=== PATIENT | female | born 1950 | race Caucasian/White ===

== ENCOUNTER 2020-10-11 09:16 | Inpatient (IN) | payer MEDICARE, OTHER ==
[~2020-10-11] VITALS: Ht 167.6 cm; Wt 92.5 kg
[~2020-10-11 09:16] MED LIST: ARAVA20 MG PO; BUSPAR 5MG TABLE5 MG PO; CALCIUM + VITA1 EACH PO; CELLCEPT500 MG PO; COUMADIN1 MG PO; COUMADIN3 MG PO; COUMADIN4 MG PO; DULCOLAX5 MG PO; ELIQUIS 5 MG TAB5 MG PO; LASIX20 MG PO; LEVAQUIN250 MG PO; LEVAQUIN750 MG PO; LIDEX TOP; LISINOPRIL40 MG PO; LOPID TAB 600600 MG PO; LOPRESSOR50 MG PO; MIRALAX17 GM PO; OXYCONTIN20 MG PO; OXYCONTIN30 MG PO; PERCOCET 10-321 EACH PO; PROVENTIL HFA 61 INH INH; TRELEGY ELLIPTA; TYLENOL 325MG325 MG PO; VENTOLIN/PROVE0.5 ML INH; VITAMIN D33000 UNIT PO; XYLOCAINE 5% OI35 GM TOP; ZANAFLEX 4 MG TA4 MG PO; ZESTRIL40 MG PO; ZOLPIDEM TARTRA10 MG PO
[2020-10-11 10:11] LABS: HEMOGLOBIN 11.7 gm/dl (12.3-15.3); RED BLOOD COUNT 4.68 M/UL (4.00-5.10); WHITE BLOOD COUNT 13.1 K/UL (4.5-11.0)
[2020-10-11 11:10] LABS: BUN/CREATININE RATIO 14 (0-10)
[2020-10-11] MEDS ORDERED: OXYCODONE HCL15 MG PO (16:19)
[2020-10-11] MEDS ORDERED: MIRALAX17 GM PO (16:24)
[2020-10-11] MEDS ORDERED: LASIX20 MG PO (18:23)
[2020-10-11] MEDS ORDERED: AMITRIPTYLINE100 MG PO (22:52)
[2020-10-11] MEDS ORDERED: AMLODIPINE BESY10 MG PO (22:53)
[2020-10-11] MEDS ORDERED: LIPITOR TAB 1010 MG PO (22:53)
[2020-10-11] MEDS ORDERED: SYNTHROID25 MCG PO (23:00)
[2020-10-11] MEDS ORDERED: OMEPRAZOLE40 MG PO (23:03)
[2020-10-11] MEDS ORDERED: LYRICA100 MG PO (23:04)
[2020-10-12 05:39] LABS: HEMOGLOBIN 10.9 gm/dl (12.3-15.3); RED BLOOD COUNT 4.44 M/UL (4.00-5.10); WHITE BLOOD COUNT 12.5 K/UL (4.5-11.0)
[2020-10-13 02:57] LABS: HEMOGLOBIN 10.6 gm/dl (12.3-15.3); RED BLOOD COUNT 4.31 M/UL (4.00-5.10)
[2020-10-13 03:22] LABS: WHITE BLOOD COUNT 8.5 K/UL (4.5-11.0)
[2020-10-15 03:10] LABS: HEMOGLOBIN 11.1 gm/dl (12.3-15.3); RED BLOOD COUNT 4.47 M/UL (4.00-5.10)
[2020-10-15 03:35] LABS: WHITE BLOOD COUNT 5.1 K/UL (4.5-11.0)
--- NOTE | 2020-10-15 10:17 | NUR ---
MD ONEAL ON FLOOR, ASK IF SHE WOULD LIKE PATIENT TO HAVE STRESS TEST TODAY, SHE ANSWERED YES, IF SHE WANTED PATIENT TO HAVE HER MEDICATION AND SHE STATED YES, INCLUDING THE BETABLOCKERS, PASSED THIS INFORMATION ON TO NUCLEAR MEDICATION STAFF.
--- NOTE | 2020-10-15 16:25 | NUR ---
CARDIOLOGY TO SEE PATIENT. SHE HAS HAD PAIN MEDICATION AND APPEARS DROWSY. MD SANTOSH PICKENS
[2020-10-16 03:21] LABS: HEMOGLOBIN 11.9 gm/dl (12.3-15.3); RED BLOOD COUNT 4.8 M/UL (4.00-5.10)
[2020-10-16 03:23] LABS: WHITE BLOOD COUNT 7.7 K/UL (4.5-11.0)
[2020-10-16] MEDS ORDERED: SYNTHROID50 MCG PO (11:59)
[2020-10-16] MEDS ORDERED: DIGOX125 MCG PO (11:59)
[2020-10-16] MEDS ORDERED: LOPRESSOR100 MG PO (11:59)
[2020-10-16] MEDS ORDERED: LISINOPRIL20 MG PO (11:59)
[2020-10-16] MEDS ORDERED: LASIX40 MG PO (11:59)
[2020-10-16] MEDS ORDERED: LEVOFLOXACIN500 MG PO (12:03)
== END 2020-10-16 18:40 | disposition home health service (06) | DRG 291 ==
LOC: ER1 09:16 → CDU 13:06 → PROG CARE 14:47
PROVIDERS: Emergency Medicine; Internal Medicine Cardiovascular Disease; Internal Medicine Infectious Disease; Physician Assistant Medical; ADMIT Internal Medicine
PROC: B24BZZ4 Ultrasonography of Heart with Aorta, Transesophageal (ICD-10-PCS; principal; 2020-10-12)
DX: I13.0 Hypertensive heart and chronic kidney disease with heart failure and stage 1 through stage 4 chronic kidney disease, or unspecified chronic kidney disease (principal); I50.33 Acute on chronic diastolic (congestive) heart failure; G92 Toxic encephalopathy; D68.51 Activated protein C resistance; J96.11 Chronic respiratory failure with hypoxia; Z20.822 Contact with and (suspected) exposure to COVID-19; N18.30 Chronic kidney disease, stage 3 unspecified; R53.81 Other malaise; I25.10 Atherosclerotic heart disease of native coronary artery without angina pectoris; K21.9 Gastro-esophageal reflux disease without esophagitis; M32.9 Systemic lupus erythematosus, unspecified; E03.9 Hypothyroidism, unspecified; G89.29 Other chronic pain; M06.9 Rheumatoid arthritis, unspecified; J30.2 Other seasonal allergic rhinitis; I08.2 Rheumatic disorders of both aortic and tricuspid valves; J44.9 Chronic obstructive pulmonary disease, unspecified; I27.20 Pulmonary hypertension, unspecified; N30.90 Cystitis, unspecified without hematuria; I48.0 Paroxysmal atrial fibrillation; Z79.01 Long term (current) use of anticoagulants; Z86.711 Personal history of pulmonary embolism; Z86.718 Personal history of other venous thrombosis and embolism; Z95.5 Presence of coronary angioplasty implant and graft; Z98.42 Cataract extraction status, left eye; Z98.41 Cataract extraction status, right eye; Z90.49 Acquired absence of other specified parts of digestive tract; Z98.1 Arthrodesis status; Z88.0 Allergy status to penicillin; Z91.040 Latex allergy status; Z87.891 Personal history of nicotine dependence; Z82.49 Family history of ischemic heart disease and other diseases of the circulatory system; Z83.3 Family history of diabetes mellitus; Z80.3 Family history of malignant neoplasm of breast
CPT/HCPCS: ECHO; 36415; 71045; 78452; 80048; 80053; 81001; 82550; 82553; 83605; 83690; 83735; 83880; 84132; 84484; 85025; 85027; 86140; 87086; 93005; 93017; 93306; 93971; 94640; 94664; 94760; 96374; 97162; 99285; A9502; J1160; J1335; J1940; J3480; J3486; Q9967; U0002

== ENCOUNTER → 2020-10-30 | Outpatient (CLI) | payer MEDICARE, OTHER ==
[~2020-10-30] MED LIST changes: +AMITRIPTYLINE100 MG PO; +AMLODIPINE BESY10 MG PO; +DIGOX125 MCG PO; +LASIX40 MG PO; +LEVOFLOXACIN500 MG PO; +LIPITOR TAB 1010 MG PO; +LISINOPRIL20 MG PO; +LOPRESSOR100 MG PO; +LYRICA100 MG PO; +OMEPRAZOLE40 MG PO; +OXYCODONE HCL15 MG PO; +SYNTHROID25 MCG PO; +SYNTHROID50 MCG PO
[2020-10-30 11:21] LABS: HEMOGLOBIN 12.2 gm/dl (12.3-15.3); RED BLOOD COUNT 4.77 M/UL (4.00-5.10); WHITE BLOOD COUNT 7.3 K/UL (4.5-11.0)
== END ==
LOC: LBRF 10:54
PROVIDERS: Emergency Medicine
DX: R79.89 Other specified abnormal findings of blood chemistry (principal); R68.89 Other general symptoms and signs
CPT/HCPCS: 80053; 85025

== ENCOUNTER 2020-11-01 10:19 | Emergency (ER) | payer MEDICARE, OTHER ==
[2020-11-01 12:14] LABS: HEMOGLOBIN 12.9 gm/dl (12.3-15.3); RED BLOOD COUNT 4.99 M/UL (4.00-5.10); WHITE BLOOD COUNT 7.9 K/UL (4.5-11.0)
[2020-11-01 12:54] LABS: BUN/CREATININE RATIO 20 (0-10)
== END 2020-11-01 20:35 | disposition home or self-care (01) ==
LOC: ER1 10:19
PROVIDERS: Physician Assistant
DX: M79.604 Pain in right leg (principal); G89.29 Other chronic pain; E87.6 Hypokalemia; R60.0 Localized edema; J44.9 Chronic obstructive pulmonary disease, unspecified; I48.91 Unspecified atrial fibrillation; I11.0 Hypertensive heart disease with heart failure; I50.9 Heart failure, unspecified; Z90.49 Acquired absence of other specified parts of digestive tract; Z88.0 Allergy status to penicillin; Z88.5 Allergy status to narcotic agent; Z86.718 Personal history of other venous thrombosis and embolism; Z86.711 Personal history of pulmonary embolism
CPT/HCPCS: 80053; 82550; 82553; 83874; 83880; 84484; 85025; 93005; 93926; 93971; 99284

== ENCOUNTER 2020-11-22 11:38 | Emergency (ER) | payer MEDICARE ==
[~2020-11-22] VITALS: Ht 167.6 cm; Wt 77.1 kg
[2020-11-22 12:32] LABS: RED BLOOD COUNT 4.16 M/UL (4.00-5.10); WHITE BLOOD COUNT 4.9 K/UL (4.5-11.0)
[2020-11-22 12:57] LABS: BUN/CREATININE RATIO 13 (0-10)
[2020-11-22] MEDS ORDERED: CEPHALEXIN500 MG PO (20:17)
== END 2020-11-22 20:28 | disposition home or self-care (01) ==
LOC: ER1 11:38
DX: U07.1 COVID-19 (principal); Z23 Encounter for immunization; J44.1 Chronic obstructive pulmonary disease with (acute) exacerbation; K21.9 Gastro-esophageal reflux disease without esophagitis; L03.116 Cellulitis of left lower limb; Z79.1 Long term (current) use of non-steroidal anti-inflammatories (NSAID)
CPT/HCPCS: 36600; 70450; 71045; 80053; 81001; 82550; 82553; 82803; 83735; 83874; 83880; 84484; 85025; 87086; 93005; 93971; 96374; 99285; J3370; M0243; U0002

== ENCOUNTER 2020-12-06 18:43 | Emergency (ER) | payer MEDICARE ==
[~2020-12-06 18:43] MED LIST changes: -K-DUR TAB 10 M10 MEQ PO
[2020-12-06 20:15] LABS: HEMOGLOBIN 11.2 gm/dl (12.3-15.3); RED BLOOD COUNT 4.27 M/UL (4.00-5.10); WHITE BLOOD COUNT 4.8 K/UL (4.5-11.0)
[2020-12-07] MEDS ORDERED: K-DUR TAB 10 M10 MEQ PO (00:17)
== END 2020-12-07 00:53 | disposition home or self-care (01) ==
LOC: ER1 18:43
PROVIDERS: Physician Assistant
DX: E87.6 Hypokalemia (principal); E03.9 Hypothyroidism, unspecified; E87.2 Acidosis
CPT/HCPCS: 80053; 82550; 82553; 83605; 83874; 84484; 85025; 87040; 93005; 96365; 96376; 99285; J3480; Q9967

== ENCOUNTER → 2020-12-06 | Outpatient (CLI) | payer MEDICARE ==
[~2020-12-06] MED LIST changes: +CEPHALEXIN500 MG PO; +K-DUR TAB 10 M10 MEQ PO
[2020-12-06 15:33] LABS: HEMOGLOBIN 11.1 gm/dl (12.3-15.3); RED BLOOD COUNT 4.23 M/UL (4.00-5.10); WHITE BLOOD COUNT 4.6 K/UL (4.5-11.0)
== END ==
LOC: RAD 14:32
PROVIDERS: Emergency Medicine
DX: R53.83 Other fatigue (principal); R06.02 Shortness of breath; M62.81 Muscle weakness (generalized); N39.498 Other specified urinary incontinence; Z86.16 Personal history of COVID-19; R91.8 Other nonspecific abnormal finding of lung field
CPT/HCPCS: 36415; 36600; 71046; 80053; 80162; 82140; 82803; 83880; 84443; 85025; 85379